=== PATIENT | male | born 1950 | race Caucasian/White ===

== ENCOUNTER 2017-05-01 16:17 | Emergency (ER) | payer BC ==
[2017-05-01 16:23] VITALS: BP 152/82; PULSE 61; TEMP 98.4; BMI 38.7
[2017-05-01] MEDS ORDERED: KETOROLAC TROMETHAMINE 60 MG/2 ML VIAL IM ONE (17:23)
[2017-05-01] MEDS ORDERED: KETOROLAC TROMETHAMINE 60 MG/2 ML VIAL ONE (17:26)
--- NOTE | 2017-05-01 17:31 | PDOC ---
History of Present Illness - General Chief Complaint: Pain Stated Complaint: LEG PAIN Time Seen by Provider: 05/01/17 16:33 - History of Present Illness Initial Comments: 05/01/17 17:24 CHIEF COMPLAINT: back/leg pain HISTORY OF PRESENT ILLNESS: 66 yo M with hx of "borderline diabetes" (not on medication) presents to fast track with pain to left lower back radiating down left leg x 1.5-2 weeks. Patient denies loss of bowel or bladder function and states he can walk but he does have pain. PAST MEDICAL HISTORY: Denies past medical history FAMILY HISTORY: Denies SOCIAL HISTORY: Alcohol use. Denies tobacco, illicit drug use. SURGICAL HISTORY: Denies ALLERGIES: No known drug allergies REVIEW OF SYSTEMS General/Constitutional: Denies fever or chills. Denies weakness, weight change. HEENT: Denies change in vision. Denies ear pain or discharge. Denies sore throat. Cardiovascular: Denies chest pain or shortness of breath. Respiratory: Denies cough, wheezing, or hemoptysis. Gastrointestinal: Denies nausea, vomiting, diarrhea or constipation. Denies rectal bleeding. Genitourinary: Denies dysuria, frequency, or change in urination. Musculoskeletal: Denies joint or muscle swelling or pain. Denies neck or back pain. Skin and breasts: Denies rash or easy bruising. Neurologic: Denies headache, vertigo, loss of consciousness, or loss of sensation. PHYSICAL EXAM General Appearance: Well-appearing, appropriately dressed. No apparent distress. HEENT: EOMI, PERRLA, normal ENT inspection, normal voice, TMs normal, pharynx normal. No conjunctival pallor. No photophobia, scleral icterus. Neck: No midline tenderness to cervical spine. Supple. Trachea midline. No tenderness, rigidity, carotid bruit, stridor, lymphadenopathy, or thyromegaly. Respiratory/Chest: Lungs CTAB. Cardiovascular: RRR. S1, S2. Gastrointestinal/Abdominal: Normal bowel sounds. Abdomen soft, non-distended. No tenderness or rebound tenderness. No organomegaly, pulsatile mass, guarding , hernia, hepatomegaly, splenomegaly. Lymphatic: No adenopathy, tenderness. Musculoskeletal/Extremities: No midline tenderness to thoracic or lumbar spine. 1+ pitting edema to legs b/l. No erythema or warmth. Normal inspection. FROM of all extremities, normal capillary refill. Pelvis Stable. No CVA tenderness. No tenderness to extremities, pedal edema, swelling, erythema or deformity. Integumentary: Appropriate color, dry, warm. No cyanosis, erythema, jaundice or rash Neurologic: class a regional drivers II-XII intact. Fully oriented, alert. Appropriate mood/affect. Motor strength 5/5. No appreciable EOM palsy, facial droop or sensory deficit. Past History - Past Medical History Allergies/Adverse Reactions: Allergies Allergy/AdvReac Type Severity Reaction Status Date / Time No Known Allergies Allergy Verified 05/01/17 16:22 Home Medications: Ambulatory Orders Cyclobenzaprine HCl [Flexeril 10 mg] 10 mg PO HS PRN #7 tablet 05/01/17 Diabetes: Yes (BORDERLINE) GI Disorders: Yes (COLON ADENOMA, POLYPS) HTN: Yes Liver Disease: Yes (FORDE) - Surgical History Abdominal Surgery: Yes Cholecystectomy: Yes - Psycho/Social/Smoking Cessation Hx Anxiety: No Suicidal Ideation: No Smoking History: Never smoked Have you smoked in the past 12 months: No Hx Alcohol Use: Yes (SOCIAL) Drug/Substance Use Hx: No Substance Use Type: None *Physical Exam - Vital Signs Last Vital Signs Temp Pulse Resp BP Pulse Ox 98.4 F 61 18 152/82 99 05/01/17 16:18 05/01/17 16:18 05/01/17 16:18 05/01/17 16:18 05/01/17 16:18 Medical Decision Making - Medical Decision Making 05/01/17 17:31 66 yo M with hx of "borderline diabetes" (not on medication) presents to fast track with pain to left lower back radiating down left leg x 1.5-2 weeks. -60 mg Toradol *DC/Admit/Observation/Transfer Diagnosis at time of Disposition: Back pain Qualifiers: Back pain location: low back pain Chronicity: acute Back pain laterality: left Sciatica presence: with sciatica Sciatica laterality: sciatica of left side Qualified Code(s): M54.42 - Lumbago with sciatica, left side - Discharge Dispostion Disposition: HOME Condition at time of disposition: Stable Admit: No - Prescriptions Prescriptions: Cyclobenzaprine HCl [Flexeril 10 mg] 10 mg PO HS PRN #7 tablet PRN Reason: Pain - Referrals Referrals: Nacho Kenyon MD [Primary Care Provider] - Nacho Tracy MD [Staff Physician] - - Patient Instructions Printed Discharge Instructions: DI for Back Pain With Sciatica Additional Instructions: Please take medication as prescribed; do NOT drink alcohol, drive, or operate machinery while taking Flexeril. Please see Dr. Tracy or any other orthopedic doctor by the end of next week. If you experience any loss of bowel or bladder function, inability to walk, loss of sensation to your legs, or any new or worsening symptoms, please return to the ER.
== END 2017-05-01 17:55 | disposition home or self-care (01) ==
LOC: JER 16:17 → JERFT 16:17
PROC: 3E0233Z Introduction of Anti-inflammatory into Muscle, Percutaneous Approach (ICD-10-PCS; principal; 2017-05-01)
DX: M54.42 Lumbago with sciatica, left side (principal); I10 Essential (primary) hypertension; R73.03 Prediabetes; K75.81 Nonalcoholic steatohepatitis (NASH)
CPT/HCPCS: 99281-25

== ENCOUNTER 2019-09-26 12:01 | Emergency (ER) | payer BC, OTHER ==
[2019-09-26 12:24] VITALS: BP 169/74; PULSE 69; TEMP 98; BMI 37.9
--- NOTE | 2019-09-26 12:25 | PDOC ---
Rapid Medical Evaluation Time Seen by Provider: 09/26/19 12:21 Medical Evaluation: Allergies Allergy/AdvReac Type Severity Reaction Status Date / Time No Known Allergies Allergy Verified 05/01/17 16:22 09/26/19 12:23 cc: pain to left shoulder x 1 week HPI: Patient reports left shoulder pain after pulling a string last .Reports pain with lifting left arm PE: + pain with abduction of left arm, unable to raise to 180 degrees without pain orders: left shoulder xray This patient will proceed to the main emergency department for further evaluation Discharge Disposition - Diagnosis Shoulder pain - Referrals - Patient Instructions - Post Discharge Activity
--- NOTE | 2019-09-26 13:43 | PDOC ---
History of Present Illness - General Chief Complaint: Pain Stated Complaint: LT SHOULDER INJURY Time Seen by Provider: 09/26/19 12:21 - History of Present Illness Initial Comments: 09/26/19 13:41 68-year-old male with left shoulder pain after forcefully pulling a sliding door 6 days ago Past History - Past Medical History Allergies/Adverse Reactions: Allergies Allergy/AdvReac Type Severity Reaction Status Date / Time No Known Allergies Allergy Verified 09/26/19 12:24 Home Medications: Ambulatory Orders Cyclobenzaprine HCl [Flexeril 10 mg] 10 mg PO HS PRN #7 tablet 05/01/17 COPD: No Diabetes: Yes (LATENT) GI Disorders: Yes (COLON ADENOMA, POLYPS) HTN: Yes Liver Disease: Yes (FORDE) - Surgical History Abdominal Surgery: Yes Cholecystectomy: Yes - Psycho Social/Smoking Cessation Hx Smoking History: Never smoked Have you smoked in the past 12 months: No Hx Alcohol Use: No Drug/Substance Use Hx: No Substance Use Type: None Review of Systems - Review of Systems Musculoskeletal: Yes: Joint Pain *Physical Exam - Vital Signs Last Vital Signs Temp Pulse Resp BP Pulse Ox 98 F 69 18 169/74 99 09/26/19 12:21 09/26/19 12:21 09/26/19 12:21 09/26/19 12:21 09/26/19 12:21 - Physical Exam 09/26/19 13:41 Left shoulder range of motion is full with pain at terminal ranges. 2 out of 5 supraspinatus isolation 3 out of 5 external rotation. Positive impingement maneuvers upper extremity compartments are soft and nontender negative Spurling maneuver neurovascular intact no gross sensorimotor deficits Medical Decision Making - Medical Decision Making 09/26/19 13:42 X-rays of the left shoulder show mild arthritic changes at the AC joint mild arthritic changes at the glenohumeral joint no gross fracture trauma or other destructive process suspected rotator cuff tear left shoulder follow-up with Ortho advised on the use of Tylenol and anti-inflammatories at home Discharge - Discharge Information Problems reviewed: Yes Clinical Impression/Diagnosis: Shoulder pain, Left shoulder strain Condition: Stable Disposition: HOME - Admission No - Follow up/Referral Referrals: Nacho Kenyon MD [Primary Care Provider] - Baljeet Law DO [Staff Physician] - - Patient Discharge Instructions Additional Instructions: Without fail follow-up with orthopedic surgery in 1 to 2 days for further evaluation and treatment options. Return to the emergency room for worsening symptoms. Tylenol Motrin as directed for pain. - Post Discharge Activity Work/Back to School Note: Back to Work
== END 2019-09-26 13:52 | disposition home or self-care (01) ==
LOC: JERFT 12:01
DX: S46.812A Strain of other muscles, fascia and tendons at shoulder and upper arm level, left arm, initial encounter (principal); X50.9XXA Other and unspecified overexertion or strenuous movements or postures, initial encounter; Y93.89 Activity, other specified; Y92.89 Other specified places as the place of occurrence of the external cause; Y99.8 Other external cause status; I10 Essential (primary) hypertension; R73.03 Prediabetes; K75.81 Nonalcoholic steatohepatitis (NASH); Z87.19 Personal history of other diseases of the digestive system
CPT/HCPCS: 73030-TC-LT-FY; 99281-25